=== PATIENT | female | born 1960 | race Caucasian/White ===

== ENCOUNTER 2019-03-03 08:40 | Outpatient (CLI) | payer BC ==
--- NOTE | 2019-03-03 10:51 | BD ---
DEXA BONE MINERAL DENSITY STUDY: HISTORY: Osteoporosis screening. COMPARISON: None. FINDINGS: LUMBAR SPINE BMD (g/cm2) T-SCORE Z-SCORE L1 0.781 -1.9 -0.6 L2 0.912 -1.1 0.4 L3 1.001 -0.8 0.7 L4 1.012 -0.4 1.1 TOTAL 0.935 -1.0 0.4 BMD (g/cm2) T-SCORE Z-SCORE LEFT FEMORAL NECK 0.737 -1.0 0.3 TOTAL LEFT HIP 0.965 0.2 1.2 IMPRESSION: Normal bone mineral density. POS: [facility]
== END 2019-03-03 08:41 | disposition home or self-care (01) ==
LOC: BICMAMMO 08:40
PROVIDERS: ATTEND Family Medicine
DX: M81.0 Age-related osteoporosis without current pathological fracture (principal)
CPT/HCPCS: 77080

== ENCOUNTER 2019-08-14 09:17 | Inpatient (IN) | payer BC ==
[2019-08-14] MEDS ORDERED: PROPOFOL 20 ML ONE (09:35)
--- NOTE | 2019-08-14 10:30 | RAD ---
RIGHT ANKLE 2 VIEWS: HISTORY: Stepped in a hole. Ankle injury. FINDINGS: There is an obliquely oriented distal fibular fracture. A more transversely oriented medial malleola r fracture and what is also probably a posterior malleolar fracture. The component of the tibial salvatore fond is displaced medially. I believe that this is probably the more anterior portion of the tibial plafond with the posterior malleolar component still in a fairly normal articulation with the talar d ome. IMPRESSION: Fracture which is probably a trimalleolar fracture. Somewhat difficult to assess on these views. POS: ADÁN
--- NOTE | 2019-08-14 10:41 | CT ---
CT RIGHT ANKLE: DATE: 08/14/2019. PROVIDED CLINICAL HISTORY: Ankle fracture. FINDINGS: There is a transversely oriented distracted fracture involving the base of the medial malleolus. The re is a comminuted Morris-B distal fibular fracture with mild anterior displacement of the distal frac ture fragments. There is a paracoronally oriented mildly displaced fracture involving the posterior aspect of the tib ial plafond with approximately 3 mm on intraarticular step-off and about 1 mm of intraarticular gap. There are multiple bone fragments seen at the anterior aspect of the tibiotalar joint laterally and s everal small bone fragments seen at the posterior aspect of the medial malleolus. Foci of soft tissu e gas are seen within the region of the medial malleolus as well as within the fat anterior to the ti biotalar joint. There is widening of the medial ankle mortise and lateral subluxation of the talus w ith respect to the tibia. IMPRESSION: Distal tibial and fibular fractures as described. POS: [facility]
[2019-08-14 10:47] LABS: #Basophils 0.1 thou/uL (0.0-0.2); #Eosinphils 0.2 thou/uL (0.0-0.7); #Lymphocytes 1.5 thou/uL (1.20-3.40); #Monocytes 0.4 thou/uL (0.11-0.59); #Neutrophils 5.1 thou/uL (1.40-6.50); %Basophils 0.7 % (0.0-1.0); %Eosinophils 2.4 % (0.0-10.0); %Lymphocytes 20.6 % (21.0-51.0); %Monocytes 5.3 % (0.0-10.0); %Neutrophils 71.1 % (42.0-75.0); Hemoglobin 12.3 g/dL (12.0-16.0); Mean Corpuscular Hemoglobin 31.3 pg (27.0-31.0); Mean Corpuscular Volume 91.9 fL (78.0-98.0); Mean Platelet Volume 8.5 fL (7.4-10.4); Platelet Count 204 thou/uL (130-400); RBC Distribution Width 11.8 % (11.5-14.5); Red Blood Cell (RBC) Count 3.93 mill/uL (4.20-5.40); White Blood Cell (WBC) Count 7.2 thou/uL (4.8-10.8)
[2019-08-14 10:53] LABS: Prothrombin Time 12.9 sec (12.0-14.7)
[2019-08-14 10:54] LABS: PTT 28.8 sec (22.9-36.1)
[2019-08-14 11:00] LABS: ALT (SGPT) 12 U/L (8-55); AST (SGOT) 17 U/L (5-34); Albumin 3.9 g/dL (3.4-4.8); Alkaline Phosphatase 68 U/L (40-110); Anion Gap 12 mmol/L (10-20); BUN (Urea Nitrogen) 13 mg/dL (9.8-20.1); Bilirubin, Total 0.3 mg/dL (0.2-1.2); Calc. Creatinine Clearance 0 mL/min (70-130); Calcium 8.8 mg/dL (7.8-10.44); Carbon Dioxide 23 mmol/L (23-31); Chloride 109 mmol/L (98-107); Estimated GFR-MDRD 56; Globulin 2.3 g/dL (2.4-3.5); Glucose 99 mg/dL (80-115); Phosphorus 2.1 mg/dL (2.3-4.7); Potassium 3.9 mmol/L (3.5-5.1); Protein, Total 6.2 g/dL (6.0-8.3); Sodium 140 mmol/L (136-145)
[2019-08-14] MEDS ORDERED: CEFAZOLIN 2 GM in Premix Bag 1 BAG IVPB SCH (11:00)
--- NOTE | 2019-08-14 11:06 | RAD ---
RIGHT TIBIA FIBULA 2 VIEWS: HISTORY: Post reduction. COMPARISON: Pre-reduction film done earlier. FINDINGS: The ankle fracture has been reduced. This appears to have been reduced. This appears to have been a trimalleolar fracture. It appears to be in much improved position on these views. The tibia is sti ll somewhat medially subluxed. IMPRESSION: Reduction of ankle fracture. POS: ADÁN
--- NOTE | 2019-08-14 11:08 | RAD ---
CHEST 1 VIEW: HISTORY: Preop. FINDINGS: Heart size and mediastinum within normal limits. The lungs appear clear of any infiltrative process. IMPRESSION: No active intrathoracic disease. POS: ADÁN
--- NOTE | 2019-08-14 11:09 | RAD ---
TWO VIEWS RIGHT ANKLE: DATE: 08/14/2019. PROVIDED CLINICAL HISTORY: Post reduction. FINDINGS: Comparison examination earlier same date. Interval cast placement with improvement in alignment of p reviously described ankle fractures. IMPRESSION: As above. POS: [facility]
[2019-08-14] MEDS ORDERED: Dextrose 50% Abboject 50 ML SYRINGE SLOW IVP PRN (11:19)
[2019-08-14] MEDS ORDERED: hydrALAZINE 20 MG/ML VIAL SLOW IVP PRN (11:19)
[2019-08-14] MEDS ORDERED: Dextrose 5% in Water 1,000 ML IV PRN (11:19)
[2019-08-14] MEDS ORDERED: Ondansetron PF 4 MG/2 ML Vial IVP PRN (11:19)
[2019-08-14] MEDS ORDERED: traMADol HCl 50 MG TAB PO PRN (11:22)
[2019-08-14] MEDS ORDERED: Sodium Chloride 0.9% 1,000 ML IV SCH (11:30)
[2019-08-14] MEDS ORDERED: Sodium Phosphate 30 MMOL in Sodium Chloride 0.9% 250 ML 250 ML IVPB SCH (11:45)
--- NOTE | 2019-08-14 12:08 | HP ---
TRAUMA SURGEON: Dr. Adair. CONSULTING PHYSICIAN: Dr. Bateman. HISTORY OF PRESENT ILLNESS: The patient is a 59-year-old female, who presented to the Emergency Department via EMS after mechanical fall in the grass. The patient reported she stepped in long grass and subsequently twisted her ankle falling down. She denies hitting her head, loss of consciousness and anticoagulation use. She was not ambulatory afterwards and arrived here via EMS. She was not a trauma activation. She denies numbness and tingling in her bilateral upper and lower extremity. She denies neck or back pain. She denies chest pain, shortness of breath, syncope, dyspnea on exertion, orthopnea, and lower extremity swelling. She does see her primary care physician regularly. REVIEW OF SYSTEMS: All additional 10-point review of systems negative except as indicated above. PAST MEDICAL HISTORY: Depression. PAST SURGICAL HISTORY: Surgery on her right hand previously with no complications. SOCIAL HISTORY: The patient denies tobacco, drug, and alcohol use. She lives independently. MEDICATIONS: Bupropion, citalopram, and vitamin D. ALLERGIES: NO KNOWN DRUG ALLERGIES. PHYSICAL EXAMINATION: VITAL SIGNS: Temperature 97.7, pulse 80, respirations 18, oxygen saturation 100% on room air, blood pressure 145/76. PRIMARY SURVEY: Airway intact. Adequate breath sounds bilaterally. 2+ pulses in bilateral radials, femorals, and DPs. GCS 15. Gross motor and sensation intact. No laceration, bruising, or external bleeding. She does have a splint to her right lower extremity that is clean, dry, and intact. SECONDARY SURVEY: HEAD: Normocephalic and atraumatic. No gross palpable skull deformities. EYES: Pupils 3 to 2, equal, round, reactive to light bilaterally. ENT: No signs of trauma. C-SPINE: No step-offs or deformities. Nontender. C-collar not in place. CHEST: Nontender. No crepitus. No abrasions or ecchymosis. Equal chest movement. She does have a mild mid systolic aortic murmur, which she does not have a history for. ABDOMEN: Soft, nontender, nondistended. PELVIS: Stable to palpation, nontender. No abrasions or ecchymosis noted. RECTAL: Deferred. GENITOURINARY: Deferred. EXTREMITIES: The patient has a splint to her right ankle. Otherwise, she has no signs of deformity. No abrasions or ecchymosis noted. No open fracture noted by Emergency Department physician. 2+ pulses in bilateral radials, femorals, and DPs. BACK/SPINE: No step-offs or deformities or tenderness to palpation of thoracic or lumbar spine. No abrasions or ecchymosis noted. NEUROLOGIC: 5/5 strength in bilateral pillowcase cutter, plantar flexion, dorsiflexion. Gross normal sensation x4 extremities. LABORATORY FINDINGS: White count 7.2, hemoglobin 12.3, hematocrit 36.1, platelets 204. INR 1.0, sodium 140, potassium 3.9, chloride 109, bicarbonate 23, BUN 13, creatinine 1.1, glucose 99, phosphorus 2.1. DIAGNOSTIC FINDINGS: X-ray of the right ankle demonstrates fracture, which is probably a trimalleolar fracture. X-ray of the right tib-fib demonstrates reduction of ankle fracture. CT scan of the right lower extremity demonstrates distal tibia and fibular fracture as above. Chest x-ray demonstrates no active intrathoracic disease. ASSESSMENT: 1. Status post mechanical fall from standing. 2. Right trimalleolar fracture. 3. Newly discovered mild mid systolic aortic murmur on the physical exam with associated T-wave inversions in V1 through V3. The patient is asymptomatic. 4. History of depression. PLAN: The patient will be admitted to the Trauma Service. She is n.p.o. She will receive normal saline at 100 an hour for a total of 1 L. We will start her on p.o. pain medications, both scheduled and p.r.n. Orthopedic Surgery plans to take the patient to the OR for her right ankle fracture. We will complete a troponin as well. The patient reports some mild nausea yesterday with no other indications of cardiac symptoms. She has not had an echo previously. There is no concern for any active TN or heart failure at this time. If there is a concern, we will further investigate and discuss any issues with Orthopedic surgery that may prevent intervention on their behalf. Postoperatively, she worked with Physical and Occupational Therapy and she may be able to go home versus rehab. This patient will be discussed with Dr. Adair after this dictation. Job ID: [id number]
[2019-08-14 13:00] LABS: Troponin I Less than 0.010 ng/mL (< 0.028)
[2019-08-14] MEDS ORDERED: Lidocaine 1% PF 5 ML VIAL ONE (13:37)
[2019-08-14] MEDS ORDERED: Dexamethasone 20 MG/5 ML VIAL ONE (13:37)
[2019-08-14] MEDS ORDERED: PROPOFOL 200 MG/20 ML VIAL ONE (13:37)
[2019-08-14] MEDS ORDERED: Ketorolac Tromethamine 30 MG/ML VIAL ONE (13:37)
[2019-08-14] MEDS ORDERED: EPHEDRINE 25 MG/5 ML SYRINGE ONE (13:37)
[2019-08-14] MEDS ORDERED: Ondansetron PF 4 MG/2 ML Vial ONE (13:37)
[2019-08-14] MEDS: Ibuprofen 200 MG TAB PO SCH ×2 (14:51→22:44)
[2019-08-14] MEDS: Acetaminophen 500 MG TAB PO SCH ×2 (14:53→17:30)
[2019-08-14 17:52] VITALS: BMI 29.4
[2019-08-14] MEDS ORDERED: Bupivacaine PF 0.5% 30 ML VIAL ONE (20:35)
[2019-08-14] MEDS ORDERED: Neomycin-Polymyxin 1 ML AMP ONE (20:35)
[2019-08-14] MEDS ORDERED: HYDROmorphone 2 MG/ML VIAL ONE (21:29)
[2019-08-14] MEDS ORDERED: Promethazine HCl 25 MG/ML VIAL IM PRN (22:26)
[2019-08-14] MEDS ORDERED: HYDROmorphone 2 MG/ML VIAL SLOW IVP PRN (22:26)
[2019-08-14] MEDS ORDERED: PACU-Morphine 4MG/ML VIAL SLOW IVP PRN (22:26)
[2019-08-14] MEDS ORDERED: Ondansetron HCl/PF 4 MG/2 ML Vial IVP PRN (22:26)
[2019-08-14] MEDS ORDERED: Promethazine HCl 25 MG/ML VIAL SLOW IVP PRN (22:26)
[2019-08-14] MEDS: Famotidine/PF 20 mg/2ml Vial SLOW IVP SCH (22:43)
[2019-08-14] MEDS: Senokot S 8.6-50 MG TAB PO SCH (22:43)
--- NOTE | 2019-08-14 23:28 | RAD ---
Exam: XR Ankle Rt 2 View HISTORY: ORIF right ankle COMPARISON: 08/14/2019 at 1045 hours. FINDINGS/IMPRESSION: 4 intraoperative fluoroscopic images of the right ankle are submitted. There is a lateral plate and multiple screws now seen transfixing the previously noted fracture invol ving the distal fibula. There are also 2 screws transfixing the previously seen fracture of the medial malleolus with screws transfixing the fracture of the posterior malleolus. No hardware complic ation is seen. Correlation with intraoperative findings is recommended.
[2019-08-14] MEDS ORDERED: Fentanyl 100 MCG/2 ML VIAL ONE (23:34)
[2019-08-14] MEDS ORDERED: Meperidine HCl/PF 25 MG/ML VIAL ONE (23:38)
[2019-08-14] MEDS ORDERED: Promethazine HCl 25 MG/ML VIAL ONE (23:39)
[2019-08-14] MEDS ORDERED: Midazolam HCl 2 mg/2 ml Vial ONE (23:52)
[2019-08-14] MEDS ORDERED: Naloxone HCl 0.4 mg/ml Vial ONE (23:58)
[2019-08-15] MEDS: Acetaminophen 500 MG TAB PO SCH ×5 (00:57→23:06)
[2019-08-15] MEDS: Ibuprofen 200 MG TAB PO SCH ×3 (04:57→23:06)
[2019-08-15] MEDS: CEFAZOLIN 2 GM in Premix Bag 1 BAG IVPB SCH ×2 (04:57→13:55)
[2019-08-15] MEDS: traMADol HCl 50 MG TAB PO PRN ×4 (04:58→23:15)
[2019-08-15 05:30] LABS: #Lymphocytes 0.8 thou/uL (1.20-3.40); #Monocytes 0.1 thou/uL (0.11-0.59); #Neutrophils 6.3 thou/uL (1.40-6.50); %Basophils 0.2 % (0.0-1.0); %Eosinophils 0.2 % (0.0-10.0); %Lymphocytes 10.8 % (21.0-51.0); %Monocytes 1.3 % (0.0-10.0); %Neutrophils 87.4 % (42.0-75.0); Hemoglobin 11.6 g/dL (12.0-16.0); Mean Corpuscular HGB CONC 33.1 g/dL (32.0-36.0); Mean Corpuscular Hemoglobin 30.5 pg (27.0-31.0); Mean Corpuscular Volume 92.1 fL (78.0-98.0); Mean Platelet Volume 8.5 fL (7.4-10.4); Platelet Count 207 thou/uL (130-400); RBC Distribution Width 11.9 % (11.5-14.5); White Blood Cell (WBC) Count 7.2 thou/uL (4.8-10.8)
[2019-08-15 06:03] LABS: Anion Gap 12 mmol/L (10-20); BUN (Urea Nitrogen) 10 mg/dL (9.8-20.1); Calc. Creatinine Clearance 66 mL/min (70-130); Calcium 8.6 mg/dL (7.8-10.44); Carbon Dioxide 25 mmol/L (23-31); Chloride 106 mmol/L (98-107); Estimated GFR-MDRD 54; Glucose 153 mg/dL (80-115); Magnesium 1.9 mg/dL (1.6-2.6); Phosphorus 3.4 mg/dL (2.3-4.7); Potassium 3.7 mmol/L (3.5-5.1); Sodium 139 mmol/L (136-145)
[2019-08-15] MEDS: Famotidine/PF 20 mg/2ml Vial SLOW IVP SCH (08:06)
[2019-08-15] MEDS: Polyethylene Glycol 3350 17 GM Packet PO SCH (08:06)
[2019-08-15] MEDS: Senokot S 8.6-50 MG TAB PO SCH ×2 (08:06→20:18)
[2019-08-15] MEDS: Cyclobenzaprine 10 MG TAB PO PRN ×2 (08:06→20:18)
--- NOTE | 2019-08-15 10:47 | CON ---
DATE OF CONSULTATION: 08/14/2019 HISTORY OF PRESENT ILLNESS: We were asked by ER to see the patient. The patient is in her normal state of health. She was putting signs out near [facility] when she stepped in a hole, fracturing her right ankle. It was a fracture dislocation. There was an off duty police captain, who helped her and parked her car for her and then she was brought to the hospital. She denies any numbness or tingling in that foot, but she knew instantaneously that she had broken her ankle as it was obviously displaced, she heard a loud crack and it was quite painful. Currently, the ankle has been reduced by Dr. Eddi Weiss in the ER and she feels much better. Denies any other injuries. She is currently undergoing x-rays right now, but she states once the reduction was done and the medications she has been given, she feels quite good. PAST MEDICAL HISTORY: Positive for; 1. Some osteopenia. 2. Vitamin D deficiency. 3. Some mild depression. PAST SURGICAL HISTORY: She has had a thumb surgery and a cyst removed. SOCIAL HISTORY: She was out working, putting out some signs. . Nonsmoker, nondrinker. No illicit drugs. CURRENT MEDICATIONS: She is on an antidepressant, bupropion, and citalopram. She also takes OTC vitamin D and some other supplements. ALLERGIES: NO KNOWN DRUG ALLERGIES. FAMILY HISTORY: For this visit is noncontributory. REVIEW OF SYSTEMS: Denies any other complaints to any extremities, bowel or bladder, chest, respirations, other than that right ankle pain. Otherwise, rest of review of systems is negative. PHYSICAL EXAMINATION: GENERAL: Well-nourished, well-developed female, alert, pleasant, no acute distress, resting on a gurney in room 7. Speech is clear, fluent. Oriented x3. VITAL SIGNS: Respirations 16. HEENT: Face is symmetric. Tongue is midline. Scalp is atraumatic. NECK: Supple. Trachea in midline. Range of motion is full. No tenderness to palpation. EXTREMITIES: Upper extremities are equal size, shape, symmetry. Normal bulk and tone. Strength, movements, sensations, and pulses are equal. Palpation of bilateral lower extremities, no pain to the thighs, knees. Right ankle has been reduced and is splinted. Left lower extremity, normal exam. I was able to palpate both DP pulses and they are equal. Sensations to both lower extremities are intact. PELVIS: No pain with rocking. IMAGING STUDIES: X-ray show a fracture dislocation with now reduction by Dr. Eddi Weiss. LABORATORY STUDIES: RBC 3.93, hemoglobin 12.3, hematocrit 36.1, platelets 204. No other labs ordered. ASSESSMENT: Right ankle fracture dislocation. PLAN: I spoke with the patient. She is nothing by mouth this morning. We plan to do an ORIF, right ankle. She has been explained about the procedure, risks, benefits. Her questions, concerns have been addressed, and she is amenable to go forth with surgery. We will get some antibiotics ordered for presurgically, get her set up on the surgery schedule, and again, she is n.p.o. If the family comes later and there are further questions or concerns, we can discuss them at that time. Job ID: [id number]
[2019-08-15] MEDS ORDERED: Magnesium 2 GM/50 ML 2 GM in Premix Bag 1 BAG IVPB SCH (13:00)
[2019-08-15] MEDS ORDERED: Potassium Phosphate 15 MMOL in Sodium Chloride 0.9% 250 ML 250 ML IVPB SCH (13:00)
--- NOTE | 2019-08-15 15:41 | OP ---
DATE OF PROCEDURE: 08/14/2019 PREOPERATIVE DIAGNOSIS: Right trimalleolar ankle fracture. POSTOPERATIVE DIAGNOSIS: Right trimalleolar ankle fracture. PROCEDURE PERFORMED: Open reduction and internal fixation of right bimalleolar ankle fracture. ANESTHESIA: General. HEAVY EQUIPMENT SERVICE TECHNICIAN: Vickey Velazquez PA-C IMPLANTS: Synthes distal fibular plate with combination of 3.5-mm screws and 4-0 partially-threaded cancellous screws. TOURNIQUET TIME: 87 minutes at 300 mmHg. COMPLICATIONS: None. DRAINS: None. SPECIMENS: None. OUTCOME: Satisfactory. INDICATIONS FOR PROCEDURE: The patient is a 59-year-old lady, status post right trimalleolar ankle fracture with displacement. After discussion with the patient including risks and benefits, we decided to proceed with open reduction and internal fixation. I believe all questions have been answered and the patient does appear to understand and wished to proceed. DESCRIPTION OF PROCEDURE: The patient was brought to the operating room and a time-out performed followed by induction of general anesthesia. Next, she was positioned supine on the OR table and a sterile prep and drape was performed of the right lower extremity. The limb was then exsanguinated with Esmarch bandage, tourniquet inflated to 300 mmHg. Next, a vertical incision was made centered over the distal fibula. After the skin was sharply incised, dissection was carried down bluntly exposing the distal fibula fracture. The fracture hematoma was lavaged from the wound and periosteal tissue was interposed at the fracture site was reflected away from the fracture. Next, the fracture was reduced at the main fracture line and held in place with bone tenaculum while anterior to posterior interfragmentary compression screw was applied. A second anterior to posterior interfragmentary compression screw also applied for a longer posterior butterfly fragment. Following this, a distal fibular plate was applied to the lateral cortex of the distal fibula and held in place with 2.4-mm locking screws distally and cortical screws proximally. Next, a second incision was made medially overlying the medial malleolus after skin was sharply incised. Dissection was carried down bluntly taking care to identify and preserve the vein. The periosteum was removed from the fracture gap and the wound irrigated with bulb syringe. The fracture was then reduced under direct visualization and held in place with bone tenaculum and then two partially-threaded cancellous screws were passed from the tip of the medial malleolus obliquely across the fracture in the distal tibial metaphysis. At this point, AP, lateral, and mortise x-rays were obtained of the fracture using C-arm that showed anatomic alignment of both medial and lateral malleoli, but still with some mild displacement of very large posterior malleolar fragment. As such, two small stab wounds were placed anteriorly under C-arm guidance and blunt dissection carried down to the level of the anterior distal tibial cortex. Next, a large tenaculum was passed posterior to the fibula through the lateral incision and then the tenaculum was used to manipulate and reduce the posterior malleolar segment. Once reduced, two percutaneous screws were passed from anterior to posterior capturing the posterior malleolar fragment in good compression and near-anatomic alignment. Final C-arm images were then taken and saved and then wound closure performed. The 2 small stab wounds were closed with nylon in an interrupted fashion. The medial and lateral incisions were closed in layers with 0 Vicryl deep, followed by 2-0 Vicryl and then mary for the skin. Xeroform gauze, Webril, and fiberglass splint was applied to the ankle and then the patient was transferred to recovery room in stable condition. There were no complications. The patient tolerated the procedure well. Job ID: [id number]
--- NOTE | 2019-08-15 17:27 | PRG ---
DATE OF SERVICE: 08/15/2019 SUBJECTIVE: The patient was seen this afternoon. She reported her pain is well controlled. She is tolerating a diet. Working with physical therapy and was getting around safely with crutches. She is receiving PT today. OBJECTIVE: VITAL SIGNS: Temperature 99.2, pulse 84, respirations 14, oxygen saturation 96% on room air, blood pressure 124/74. GENERAL: Well-appearing elderly female, lying in bed with no signs of acute distress. PULMONARY: Equal chest rise and fall. Clear breath sounds bilaterally. No signs of acute respiratory distress. CARDIAC: Regular rate and rhythm. GI: Abdomen is soft, nontender, nondistended. EXTREMITIES: 2+ pulses in all extremities. Gross motor and sensation intact. Right lower extremity with splint that is clean, dry, and intact. NEUROLOGIC: GCS is 15. LABORATORY FINDINGS: White count 7.2, hemoglobin 11.6, hematocrit 35.0, platelets 207. Sodium 139, potassium 3.7, chloride 106, bicarb 25, BUN 10, creatinine 1.03, phosphorus 3.4, magnesium 1.9. DIAGNOSTIC FINDINGS: There are no new diagnostic findings to report. ASSESSMENT: 1. Status post mechanical fall from standing. 2. Right trimalleolar fracture, status post repair. 3. History of depression. PLAN: Continue current diet and pain regimen. Continue physical and occupational therapy. Discontinue IV fluids. The patient is safe to be discharged today; however, she will be staying with her sister and her sister will be ready to accept her tomorrow. We will continue PT in the meantime. Replace magnesium, phosphorus, and potassium. We will start the patient on Lovenox 40 mg daily. We will discharge the patient with Lovenox as well. The patient is ready for discharge at this time. She will go home tomorrow. Job ID: [id number] MTDD
[2019-08-15] MEDS ORDERED: Enoxaparin Sodium 40 MG/0.4 ML SYRINGE SC SCH (21:00)
[2019-08-16] MEDS: Ibuprofen 200 MG TAB PO SCH ×2 (05:30→13:10)
[2019-08-16] MEDS: Acetaminophen 500 MG TAB PO SCH ×2 (05:30→13:10)
[2019-08-16] MEDS: traMADol HCl 50 MG TAB PO PRN (05:31)
[2019-08-16] MEDS: Polyethylene Glycol 3350 17 GM Packet PO SCH (08:11)
[2019-08-16] MEDS: Senokot S 8.6-50 MG TAB PO SCH (08:11)
[2019-08-16] MEDS ORDERED: Bupropion 150 MG XL TAB PO SCH (09:00)
[2019-08-16] MEDS ORDERED: Citalopram 10 MG TAB PO SCH (09:00)
[2019-08-16 11:20] VITALS: BP 131/80; TEMP 98.7
--- NOTE | 2019-08-16 14:16 | RAD ---
RIGHT ANKLE 2 VIEWS: Date: 08/16/2019 HISTORY: Injury from a fall. Status post open reduction and internal fixation. COMPARISON: 08/14/2019. FINDINGS/IMPRESSION: Recent postop metal plate and screws and internal fixation screws stabilize the previously noted trim alleolar fracture. Stable appearance from 08/14/2019 2120 hours immediate postoperative exam. POS: [facility]
--- NOTE | 2019-08-17 12:55 | DIS ---
DATE OF ADMISSION: 08/14/2019 DATE OF DISCHARGE: 08/16/2019 ADMISSION DIAGNOSES: Mechanical fall, right trimalleolar fracture. DISCHARGE DIAGNOSES: Mechanical fall, right trimalleolar fracture. CONSULTING PHYSICIAN: Dr. Bateman of Orthopedic Surgery. PROCEDURES: The patient went to the OR on August 14, [address] Bateman and had an open reduction and internal fixation of the right bimalleolar ankle fracture. HOSPITAL COURSE: The patient is a 59-year-old female, presented to the emergency department via EMS after a mechanical fall from standing. She was found to have a right trimalleolar fracture and was admitted to the Trauma Service. She went to the OR the next day for ORIF of the right bimalleolar fracture. Postoperatively, she worked with Physical and Occupational Therapy and she was deemed safe to go home with a walker. At the time of discharge, the patient's pain was well controlled. She was tolerating regular diet. She was getting around safely with a walker. Right before discharge, the patient was up without the nurses help. She reached over to close a curtain, reaching too far with a walker and subsequently fell onto her right side. She was evaluated and deemed to have no additional injuries. A repeat x-ray of the right ankle was completed, which demonstrated no additional injuries or disturbances to the fracture fixation. The Orthopedic Surgery Team was contacted, they have reviewed the images and they reported that the patient was okay to go home and they were not concerned. DISCHARGE DISPOSITION: Home. DISCHARGE CONDITION: Satisfactory. PHYSICAL EXAMINATION: VITAL SIGNS: Temperature 98.7, pulse rate 72, respirations are 16, oxygen saturation 97% on room air, and blood pressure 131/80. GENERAL: A well-appearing elderly female, lying in bed with no signs of acute distress. PULMONARY: Equal chest rise and fall. Clear breath sounds bilaterally. No signs of acute respiratory distress. CARDIAC: Regular rate and rhythm. GASTROINTESTINAL: Abdomen is soft, nontender, and nondistended. EXTREMITIES: 2+ pulses in all extremities. Gross motor and sensation intact. No significant swelling noted. She has a splint to her right lower extremity that is clean, dry, and intact. NEUROLOGIC: GCS is 15. Gross motor and sensation intact. No signs of acute respiratory distress. DISCHARGE INSTRUCTIONS: The patient was discharged home. Activity as tolerated. Nonweightbearing to her right lower extremity. Regular diet. Incentive spirometry and a walker. DISCHARGE MEDICATIONS: Include Tylenol, bupropion, citalopram, Flexeril, Lovenox, ergocalciferol, ibuprofen, MiraLAX, and tramadol. FOLLOWUP APPOINTMENTS: The patient is to follow up with Dr. Bateman in 10 days. No need for followup with Dr. Adair in Trauma Clinic. This is a summary of the patient's hospitalization. For full details, please see her medical record in its entirety. The [employer] (formerly [employer] prescription monitoring program was attempted to be accessed; however, the web site was not working appropriately and the patient could not be searched. She was discharged home on pain medications that were used to treat her pain during the hospitalization. This patient was examined on the day of discharge. Job ID: [id number]
== END 2019-08-16 16:40 | disposition home or self-care (01) | DRG 494 ==
LOC: ERS 09:17 → SURG A 14:09
PROVIDERS: ADMIT Orthopaedic Surgery; ATTEND Orthopaedic Surgery
PROC: 0QSG04Z Reposition Right Tibia with Internal Fixation Device, Open Approach (ICD-10-PCS; principal; 2019-08-14)
DX: S82.851A Displaced trimalleolar fracture of right lower leg, initial encounter for closed fracture (principal); F32.9 Major depressive disorder, single episode, unspecified; W18.39XA Other fall on same level, initial encounter
CPT/HCPCS: 36415; 71045; 76000; 80048; 80053; 83735; 84100; 84484; 85025; 85610; 85730; 93005; 94760; C1713; G0390; J0690; J1100; J1170; J1650; J1885; J2001; J2175; J2250; J2270; J2310; J2405; J2550; J2704; J3010; J3475; J7050; S0020; S0028

== ENCOUNTER 2021-07-13 08:26 | Outpatient (CLI) | payer BC | END 2021-07-13 08:27 | disposition home or self-care (01) | LOC: BICRAD 08:26 | PROVIDERS: ATTEND Specialist | DX: M51.16 Intervertebral disc disorders with radiculopathy, lumbar region (principal); M47.26 Other spondylosis with radiculopathy, lumbar region | CPT/HCPCS: 72110 ==

== ENCOUNTER 2021-07-26 09:28 | Outpatient (CLI) | payer BC | END 2021-07-26 09:29 | disposition home or self-care (01) | LOC: TBSIIMAG 09:28 | PROVIDERS: ATTEND Specialist | DX: M87.9 Osteonecrosis, unspecified (principal); M25.559 Pain in unspecified hip; M25.852 Other specified joint disorders, left hip; M25.851 Other specified joint disorders, right hip; D25.9 Leiomyoma of uterus, unspecified; N88.2 Stricture and stenosis of cervix uteri; S73.192A Other sprain of left hip, initial encounter; S73.191A Other sprain of right hip, initial encounter; M94.252 Chondromalacia, left hip; M94.251 Chondromalacia, right hip; M25.751 Osteophyte, right hip; M25.752 Osteophyte, left hip; M62.89 Other specified disorders of muscle | CPT/HCPCS: 72195 ==

== ENCOUNTER 2025-01-20 11:47 | Outpatient (CLI) | payer MEDICARE | END 2025-01-20 11:48 | disposition home or self-care (01) | LOC: BICMAMMO 11:47 | PROVIDERS: ATTEND Family Medicine | DX: M81.0 Age-related osteoporosis without current pathological fracture (principal) | CPT/HCPCS: 77080 ==